=== PATIENT | male | born 1975 | race Caucasian/White ===

== ENCOUNTER 2016-08-11 05:25 | Emergency (ER) | payer BC, OTHER ==
[2016-08-11 05:35] VITALS: BP 123/74
[2016-08-11] MEDS ORDERED: Colchicine 0.6 MG Tab PO ONE (05:41)
[2016-08-11] MEDS ORDERED: Indomethacin 25 MG Cap PO ONE (05:41)
[2016-08-11] MEDS ORDERED: predniSONE 20 MG Tab PO ONE (05:41)
--- NOTE | 2016-08-11 05:43 | EDM.PDOC ---
ED HPI GENERAL MEDICAL PROBLEM - General Chief Complaint: Lower Extremity Injury/Pain Stated Complaint: POSS GOUT Time Seen by Provider: 08/11/16 05:37 Source of Information: Reports: Patient History Limitations: Reports: No Limitations - History of Present Illness INITIAL COMMENTS - FREE TEXT/NARRATIVE: 40-year-old male presents the ED with acute onset of pain in his right great toe MCP joint. He's had previous gout attacks in this foot in infection the same joint. Last attack was about 5 years ago. His family history of gout. He states he went to bed feeling fine but awoke with pain in the toilet this morning. He is going off to work. Unknown medications that would help precipitate hyperuricemia. He otherwise is in good health. Onset: Today Onset Date: 08/11/16 Onset Time: 05:00 Duration: Minutes:, Getting Worse Location: Reports: Lower Extremity, Right (Right great toe first MCP joint) Quality: Reports: Ache, Stabbing, Throbbing Severity: Moderate Improves with: Reports: None Worsens with: Reports: Movement (Walking) Context: Denies: Activity, Exercise, Lifting, Sick Contact, Trauma, Other Associated Symptoms: Denies: No Other Symptoms, Confusion, Chest Pain, Cough, cough w sputum, Diaphoresis, Fever/Chills, Headaches, Loss of Appetite, Malaise , Nausea/Vomiting, Rash, Seizure, Shortness of Breath, Syncope, Weakness Treatments STOCK SHAPER: Reports: Other (see below) (None.) Right Feet Pain Score (Numeric/FACES): 2 - Related Data Allergies Allergy/AdvReac Type Severity Reaction Status Date / Time No Known Allergies Allergy Verified 08/11/16 05:35 Home Meds: Home Meds Colchicine 0.6 mg PO Q1H #2 capsule 08/11/16 [Rx] Diclofenac Sodium [Voltaren] 50 mg PO TIDMEALS #24 tab.ec 08/11/16 [Rx] predniSONE [Deltasone] 20 mg PO BID #10 tablet 08/11/16 [Rx] Past Medical History Musculoskeletal History: Reports: Gout (Recurrent bouts of gout particularly involving the right foot.) Social & Family History - Living Situation & Occupation Living situation: Reports: Occupation: Employed Review of Systems - Review of Systems Review Of Systems: See Below Constitutional: Reports: No Symptoms Eyes: Reports: No Symptoms Ears: Reports: No Symptoms Nose: Reports: No Symptoms Mouth/Throat: Reports: No Symptoms Respiratory: Reports: No Symptoms Cardiovascular: Reports: No Symptoms GI/Abdominal: Reports: No Symptoms Genitourinary: Reports: No Symptoms Musculoskeletal: Reports: No Symptoms Skin: Reports: No Symptoms Neurological: Reports: No Symptoms Psychiatric: Reports: No Symptoms ED EXAM, GENERAL - Physical Exam Exam: See Below Exam Limited By: No Limitations General Appearance: Alert, WD/WN, No Apparent Distress Eye Exam: Bilateral Eye: Normal Inspection Ears: Hearing Grossly Normal Extremities: Other (Examination limited to his right foot. He has marked pain in his first MCP joint of the right great toe. There is mild erythema and mild increased warmth. Movement I either plantar or dorsiflexion causes pain.) Neurological: Alert ( He is in the early stages of a gout attack.), Oriented, CN II-XII Intact, Normal Cognition Psychiatric: Normal Affect, Normal Mood Skin Exam: Warm, Dry, Intact, Normal Color, No Rash Course - Vital Signs Last Recorded V/S: Last Vital Signs Temp 36.2 C 08/11/16 05:31 Pulse 71 08/11/16 05:31 Resp 18 08/11/16 05:31 BP 123/74 08/11/16 05:31 Pulse Ox 96 08/11/16 05:31 - Orders/Labs/Meds Meds: Medications Discontinued Medications Generic Name Dose Route Start Last Admin Trade Name Yeni PRN Reason Stop Dose Admin Colchicine 0.6 mg 08/11/16 05:41 Colcrys PO 08/11/16 05:42 ONETIME ONE Indomethacin 50 mg 08/11/16 05:41 Indocin PO 08/11/16 05:42 ONETIME ONE Prednisone 30 mg 08/11/16 05:41 Prednisone PO 08/11/16 05:42 ONETIME ONE - Radiology Interpretation Free Text/Narrative:: 40-year-old male presents the ED with acute onset of right great toe pain. He is appreciates the feeling of the eye don't attack. He's had several attacks involving the same joint. Aspirin was about 5 years prior. He will pain this morning with first up from bed. Examination shows increased warmth and tenderness to the first MCP joint right great toe. Treated with colchicine 0.6 mg by mouth q. hourly x3. They will be given through the ED. Given indomethacin 50 mg orally and prednisone 30 mg orally. He will be going to work. 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 Return 50 mg 3 times a day and again starting tonight. It should be enough to clear up the acute onset and very quickly. Departure - Departure Time of Disposition: 05:43 Disposition: Home, Self-Care 01 Condition: fair Clinical Impression: Acute gout Qualifiers: Gout site: toe Gout etiology: idiopathic Laterality: right Qualified Code(s): M10.071 - Idiopathic gout, right ankle and foot - Discharge Information Prescriptions: Colchicine 0.6 mg PO Q1H #2 capsule Diclofenac Sodium [Voltaren] 50 mg PO TIDMEALS #24 tab.ec predniSONE [Deltasone] 20 mg PO BID #10 tablet Referrals: PCP,None [Primary Care Provider] - Forms: ED Department Discharge Additional Instructions: Evaluation in the emergency room in regards to acute gout attack involving the right great toe MCP joint. Previous gout attack in the same area with the last attack about 5 years ago. Treatment was started immediately with colchicine 0.6 mg orally one tablet every hour for 3 consecutive hours. Indomethacin 50 mg a provided in the ED as an anti-inflammatory pain reliever. 10 prednisone 30 mg was given orally which will start work in 4-6 hours to reduce inflammation caused by gout crystals. Treatment will need to be continued for the next 8 days. Use Voltaren 50 mg 3 times daily for 8 days to clear up inflammation caused by gout and make sure that it settles down completely. Prednisone 20 mg with breakfast and supper for the next 5 days. Next how would be due at suppertime tonight. Expect marked improvement in the next 24 hours.
[2016-08-11] MEDS ORDERED: Colchicine 0.6 MG Tab ONE (05:53)
== END 2016-08-11 05:58 | disposition home or self-care (01) ==
LOC: JD.ED 05:25
DX: M10.071 Idiopathic gout, right ankle and foot (principal)
CPT/HCPCS: 99283; A9270